=== PATIENT | male | born 1960 | race Caucasian/White ===

== ENCOUNTER 2017-09-10 20:16 | Observation (INO) | payer MEDICAID ==
[~2017-09-10] VITALS: Ht 172.7 cm; Wt 123.0 kg
[~2017-09-10 20:16] MED LIST: ALBUAER3 INH; FAMO40TA PO; OMEP40CA2 PO; TAMS5CAP PO
[2017-09-10 20:52] VITALS: BP 128/87; PULSE 78; RESP 18; TEMP 97.3; O2SAT 95
[2017-09-10] MEDS ORDERED: XARE20TA PO (21:42)
[2017-09-10 21:45] VITALS: BP 130/79; PULSE 75; RESP 18; O2SAT 96
--- NOTE | 2017-09-10 23:03 | RADRPT ---
EXAM DATE: 09/10/2017 10:56 PM EDT AGE/SEX: 57 years / Male INDICATIONS: Right lower extremity swelling. CLINICAL DATA: This is the patient's initial encounter. Patient reports that signs and symptoms have been present for 1 week and indicates a pain score of 5/10. MEDICAL/SURGICAL HISTORY: Hypertension. Asthma. Chronic obstructive pulmonary disease. Total knee replacement, right. COMPARISON: [facility]LI, US KIDNEY, BILATERAL, 08/26/2017. . TECHNIQUE: Venous ultrasound of both lower extremities was performed from the inguinal ligament to t he proximal calf. Real-time, color Doppler and spectral tracing, compression and augmentation techni ques were used. FINDINGS: There is possible nonocclusive thrombus involving the right popliteal vein as well as the peroneal vein. The femoral vein and iliac veins are patent. CONCLUSION: 1. Equivocal nonocclusive thrombus confined to the popliteal and peroneal vein. Electronically signed by: Kiet Eugene MD 09/10/2017 11:02 PM EDT
[2017-09-11] MEDS ORDERED: HYDROCHLOROTHIAZIDE 12.5 MG CAP PO ONE (00:15)
[2017-09-11 01:00] VITALS: BP 124/71; PULSE 78; RESP 16; O2SAT 97
--- NOTE | 2017-09-11 01:10 | RADRPT ---
EXAM DATE: 09/11/2017 12:32 AM EDT AGE/SEX: 57 years / Male INDICATIONS: Swelling and pain. CLINICAL DATA: This is the patient's initial encounter. Patient reports that signs and symptoms have been present for 1 week and indicates a pain score of 10/10. MEDICAL/SURGICAL HISTORY: . Hypertension. Asthma. Chronic obstructive pulmonary disease. . T otal knee replacement, right. COMPARISON: No prior exams available for comparison. FINDINGS: Multiple views of the right knee were obtained and demonstrate the patient is status post total knee arthroplasty. The arthroplasty components are cemented. The femoral component is intact and is unrema rkable in appearance. The tibial component demonstrates adjacent abnormal lucency along the medial an d lateral margins. There is high density cement noted along portions of the posterior joint. CONCLUSION: Abnormal lucency along the tibial component which could indicate loosening. Electronically signed by: Viral Chacko MD 09/11/2017 1:09 AM EDT
[2017-09-11 01:39] LABS: AUTOMATED NEUTROPHIL # 6.4 TH/MM3 (1.8-7.7); BASOPHIL # 0.2 TH/MM3 (0-0.2); EOSINOPHIL # 0.2 TH/MM3 (0-0.4); EOSINOPHIL % 1.7 % (0.0-4.0); HEMATOCRIT 49.2 % (39.0-51.0); HEMOGLOBIN 16.6 GM/DL (13.0-17.0); LYMPHOCYTE # 1.4 TH/MM3 (1.0-4.8); MEAN CORPUSCULAR HEMOGLOBIN 28.3 PG (27.0-34.0); MEAN CORPUSCULAR HGB CONC 33.6 % (32.0-36.0); MEAN PLATELET VOLUME 11.2 FL (7.0-11.0); MONO % 8.7 % (0.0-8.0); MONOCYTE # 0.8 TH/MM3 (0-0.9); NEUT % 71.6 % (16.0-70.0); PLATELET COUNT 149 TH/MM3 (150-450); RED BLOOD COUNT 5.86 MIL/MM3 (4.50-5.90); RED CELL DISTRIBUTION WIDTH 14.6 % (11.6-17.2)
[2017-09-11 02:12] LABS: ALKALINE PHOSPHATASE 147 U/L (45-117); TOTAL BILIRUBIN ADULT 0.8 MG/DL (0.2-1.0); TOTAL PROTEIN 7.4 GM/DL (6.4-8.2)
--- NOTE | 2017-09-11 02:14 | PD ---
HPI . RIGHT LEG SWELLING Chief Complaint: Edema Time Seen by Provider: 21:37 Travel History International Travel<30 days: No Contact w/Intl Traveler<30days: No Traveled to known affect area: No History of Present Illness HPI Patient is a 57-year-old male who is having tenderness and pain in his leg right sided 2 years ago he had a knee replacement in the last few weeks he has had swelling tenderness pain and inability to weight-bear of his right leg pain is pressure-like fullness heaviness constant worsening is not relieved by over- the-counter NSAIDs or Tylenol denies trauma . He is worried pain has something to do with his knee replacement.possible hardware malfunction. Patient is morbidly obese but denies other PFSH Past Medical History Asthma: Yes Cardiovascular Problems: Yes COPD: Yes Diminished Hearing: Yes Hypertension: Yes Integumentary: Yes Tetanus Vaccination: > 5 Years Influenza Vaccination: No Past Surgical History Other Surgery: Yes (" RIGHT TEMPORARY KNEE REPLACEMENT' ) Social History Alcohol Use: No Tobacco Use: Yes Substance Use: No Allergies-Medications (Allergen,Severity, Reaction): Coded Allergies: morphine (Verified Allergy, Severe, 09/10/17) penicillin G (Unverified Allergy, Intermediate, Rash, 09/10/17) tetanus toxoid, adsorbed (Unverified Allergy, Intermediate, RASH, 09/10/17) Reported Meds & Prescriptions Reported Meds & Active Scripts Active Klor-Con 10 (Potassium Chloride) 10 Meq Tab 10 Meq PO DAILY Furosemide 20 Mg Tab 20 Mg PO DAILY Flomax (Tamsulosin HCl) 0.4 Mg Cap 0.4 Mg PO HS Reported Xarelto (Rivaroxaban) 20 Mg Tab 20 Mg PO DAILY Proair Hfa 8.5 GM Inh (Albuterol Sulfate) 90 Mcg/Act Aer 2 Puff INH Q4-6H PRN 108 mcg/actuation Omeprazole 40 Mg Cap 40 Mg PO DAILY Review of Systems Except as stated in HPI: all other systems reviewed are Neg Physical Exam Narrative GENERAL: Morbidly obese with a right leg that is obviously more swollen than the left but not red not warm SKIN: Warm and dry. HEAD: Atraumatic. Normocephalic. EYES: Pupils equal and round. No scleral icterus. No injection or drainage. ENT: No nasal bleeding or discharge. Mucous membranes pink and moist. NECK: Trachea midline. No JVD. CARDIOVASCULAR: Regular rate and rhythm. RESPIRATORY: No accessory muscle use. Clear to auscultation. Breath sounds equal bilaterally. GASTROINTESTINAL: Abdomen soft, non-tender, nondistended. Hepatic and splenic margins not palpable. MUSCULOSKELETAL: Extremities right knee and calf significant more swollen than the left there is a healed incision of her knee replacement but there is no redness no cellulitic component pulses are palpated NEUROLOGICAL: Awake and alert. No obvious cranial nerve deficits. Motor grossly within normal limits. Five out of 5 muscle strength in the arms and legs. Normal speech. PSYCHIATRIC: Appropriate mood and affect; insight and judgment normal. Data Data Last Documented VS Orders Orders Us Leg Venous Doppler (09/10/17 ) Hydrochlorothiazide (Microzide) (09/11/17 00:15) Knee, Complete (4vws) (09/11/17 ) Complete Blood Count With Diff (09/11/17 01:01) Comprehensive Metabolic Panel (09/11/17 01:01) Consult Orthopedic (09/11/17 ) Admit Order (Ed Use Only) (09/11/17 02:33) Labs Laboratory Tests Test 09/11/17 01:19 White Blood Count 9.0 TH/MM3 Red Blood Count 5.86 MIL/MM3 Hemoglobin 16.6 GM/DL Hematocrit 49.2 % Mean Corpuscular Volume 84.0 FL Mean Corpuscular Hemoglobin 28.3 PG Mean Corpuscular Hemoglobin Concent 33.6 % Red Cell Distribution Width 14.6 % Platelet Count 149 TH/MM3 Mean Platelet Volume 11.2 FL Neutrophils (%) (Auto) 71.6 % Lymphocytes (%) (Auto) 16.0 % Monocytes (%) (Auto) 8.7 % Eosinophils (%) (Auto) 1.7 % Basophils (%) (Auto) 2.0 % Neutrophils # (Auto) 6.4 TH/MM3 Lymphocytes # (Auto) 1.4 TH/MM3 Monocytes # (Auto) 0.8 TH/MM3 Eosinophils # (Auto) 0.2 TH/MM3 Basophils # (Auto) 0.2 TH/MM3 CBC Comment DIFF FINAL Differential Comment Blood Urea Nitrogen 17 MG/DL Creatinine 1.04 MG/DL Random Glucose 75 MG/DL Total Protein 7.4 GM/DL Albumin 4.0 GM/DL Calcium Level 9.2 MG/DL Alkaline Phosphatase 147 U/L Aspartate Amino Transf (AST/SGOT) 14 U/L Alanine Aminotransferase (ALT/SGPT) 16 U/L Total Bilirubin 0.8 MG/DL Sodium Level 140 MEQ/L Potassium Level 3.9 MEQ/L Chloride Level 105 MEQ/L Carbon Dioxide Level 23.5 MEQ/L Anion Gap 12 MEQ/L Estimat Glomerular Filtration Rate 73 ML/MIN MDM Medical Decision Making Medical Screen Exam Complete: Yes Emergency Medical Condition: Yes Medical Record Reviewed: Yes Differential Diagnosis Cellulitis versus thrombosis versus versus septic joint versus malfunction or fracture of the prosthetic knee versus DVT Narrative Course DVT study is negative there is a partial thrombus in the popliteal but there is nonocclusive patient also has a x-ray that shows the part of the knee seems to possibly be unstable as there is an effusion lucency along the asked tract of the knee patient is admitted for inability to weight-bear leg swelling and possible issue with his prosthetic knee Diagnosis Primary Impression: Knee pain Qualified Codes: M25.561 - Pain in right knee; G89.29 - Other chronic pain Additional Impression: Intractable pain Admitting Information Admitting Physician Requests: Observation Scripts Potassium Chloride ER (Klor-Con 10) 10 Meq Tab 10 MEQ PO DAILY for Electrolyte Replacement, #3014 TAB 0 Refills Prov: Nikki Jimenez MD 09/11/17 Furosemide (Furosemide) 20 Mg Tab 20 MG PO DAILY for swelling, #3014 TAB 0 Refills Prov: Nikki Jimenez MD 09/11/17 Yonathan Elliott MD Sep 11, 2017 02:13
[2017-09-11 02:25] LABS: ALT (GPT) 16 U/L (12-78); AST (GOT) 14 U/L (15-37); BICARBONATE 23.5 MEQ/L (21.0-32.0); BLOOD UREA NITROGEN 17 MG/DL (7-18); CALCIUM 9.2 MG/DL (8.5-10.1); CHLORIDE 105 MEQ/L (98-107); CREATININE 1.04 MG/DL (0.60-1.30); GLOMERULAR FILTRATION RATE 73 ML/MIN (>89); GLUCOSE,RANDOM 75 MG/DL (74-106); SODIUM (NA) 140 MEQ/L (136-145)
[2017-09-11] MEDS ORDERED: ACETAMINOPHEN/HYDROcodone 325 MG/5 MG TAB PO PRN (02:45)
[2017-09-11] MEDS ORDERED: METOCLOPRAMIDE HCL 10 MG/2 ML VIAL IV PUSH PRN (02:45)
[2017-09-11] MEDS ORDERED: BISACODYL 10 MG SUPP RECTAL PRN (02:45)
[2017-09-11] MEDS ORDERED: SODIUM CHLORIDE 0.9% FLUSH 10 ML FLUSH IV FLUSH PRN (02:45)
[2017-09-11] MEDS ORDERED: ACETAMINOPHEN 325 MG TAB PO PRN (02:45)
[2017-09-11] MEDS ORDERED: LACTULOSE SYRUP 20 GM/30 ML CUP PO PRN (02:45)
[2017-09-11] MEDS ORDERED: MAGNESIUM HYDROXIDE SUSP 30 ML CUP PO PRN (02:45)
[2017-09-11] MEDS ORDERED: SENNOSIDES 8.6 MG TAB PO PRN (02:45)
[2017-09-11] MEDS ORDERED: HYDROmorphone HCL PF 2 MG/ML VIAL IV PUSH PRN (02:45)
--- NOTE | 2017-09-11 03:41 | HHI.HP ---
[facility] No Primary Care Physician Admission Diagnosis KNEE SWELLING PAIN CALF SWELLING INABILITY TO WEIGHT Diagnoses: (1) Intractable pain Diagnosis: Principal (2) DVT (deep venous thrombosis) Diagnosis: Principal (3) Knee pain Diagnosis: Principal Travel History International Travel<30 Days: No Contact w/Intl Traveler <30 Da: No Traveled to Known Affected Are: No History of Present Illness This is a 57-year-old male with PMH of HTN, COPD and DVT on Xarelto who presented to the ER with complaints of right leg pain x6 months. States he was seen at [facility] 6 months ago and diagnosed w/ DVT for which he is on Xarelto, compliant w/ meds. Has had ongoing right leg/foot pain since then, today pain so severe he is unable to ambulate. Pain is severe, 10/10, non-radiating, worse w/ movement/weight baring. No injury/trauma. On arrival, BP 128/87, HR 78, O2 sat 95% on RA, Afebrile. CBC at baseline. Chemistry unremarkable. Knee X-ray with abnormal lucency along tibial component possibly indicating loosening. LE DVT equivocal nonocclusive thrombus in popliteal and peroneal veins. Review of Systems Except as stated in HPI: all other systems reviewed are Neg ROS: 14 point review of systems otherwise negative. Past Family Social History Past Medical History PMH: HTN, COPD and DVT on Xarelto Past Surgical History PAST SURGICAL HISTORY: Right Knee Replacement Allergies: Coded Allergies: morphine (Verified Allergy, Severe, 09/10/17) penicillin G (Unverified Allergy, Intermediate, Rash, 09/10/17) tetanus toxoid, adsorbed (Unverified Allergy, Intermediate, RASH, 09/10/17) Family History PAST FAMILY HISTORY: Reviewed. No h/o DM or CAD Social History PAST SOCIAL HISTORY: Negative for alcohol or drugs. Positive for tobacco Physical Exam Vital Signs Vital Signs Date Time Temp Pulse Resp B/P (MAP) Pulse Ox O2 Delivery O2 Flow Rate FiO2 09/10/17 21:45 75 18 130/79 (96) 96 Room Air 09/10/17 20:52 97.3 78 18 128/87 (101) 95 Physical Exam PE: GENERAL: Middle-aged white male in no acute distress. Speech impediment. HEENT: PERRLA, EOMI. No scleral icterus or conjunctival pallor. No lid lag or facial droop. CARDIOVASCULAR: Regular rate and rhythm. No obvious murmurs to auscultation. No chest tenderness to palpation. RESPIRATORY: No obvious rhonchi or wheezing. Clear to auscultation. Breath sounds equal bilaterally. GASTROINTESTINAL: Abdomen soft, non-tender, nondistended. BS normal. MUSCULOSKELETAL: Extremities without clubbing, cyanosis. Bilateral LE edema, right worse than left, tenderness to palpation RLE. NEUROLOGICAL: Awake, alert and oriented x4. No focal neurologic deficits. Moving both upper and lower extremities spontaneously. Laboratory Laboratory Tests Test 09/11/17 01:19 White Blood Count 9.0 Red Blood Count 5.86 Hemoglobin 16.6 Hematocrit 49.2 Mean Corpuscular Volume 84.0 Mean Corpuscular Hemoglobin 28.3 Mean Corpuscular Hemoglobin Concent 33.6 Red Cell Distribution Width 14.6 Platelet Count 149 Mean Platelet Volume 11.2 Neutrophils (%) (Auto) 71.6 Lymphocytes (%) (Auto) 16.0 Monocytes (%) (Auto) 8.7 Eosinophils (%) (Auto) 1.7 Basophils (%) (Auto) 2.0 Neutrophils # (Auto) 6.4 Lymphocytes # (Auto) 1.4 Monocytes # (Auto) 0.8 Eosinophils # (Auto) 0.2 Basophils # (Auto) 0.2 CBC Comment DIFF FINAL Differential Comment Blood Urea Nitrogen 17 Creatinine 1.04 Random Glucose 75 Total Protein 7.4 Albumin 4.0 Calcium Level 9.2 Alkaline Phosphatase 147 Aspartate Amino Transf (AST/SGOT) 14 Alanine Aminotransferase (ALT/SGPT) 16 Total Bilirubin 0.8 Sodium Level 140 Potassium Level 3.9 Chloride Level 105 Carbon Dioxide Level 23.5 Anion Gap 12 Estimat Glomerular Filtration Rate 73 Result Diagram: 09/11/1711809/11/17118 Caprini VTE Risk Assessment Caprini VTE Risk Assessment: Mod/High Risk (score >= 2) Caprini Risk Assessment Model Point Value = 1 Point Value = 2 Point Value = 3 Point Value = 5 Age 41-60 Minor surgery BMI > 25 kg/m2 Swollen legs Varicose veins or History of unexplained or recurrent spontaneous Oral contraceptives or hormone replacement Sepsis (< 1 month) Serious lung disease, including pneumonia (< 1 month) Abnormal pulmonary function Acute myocardial infarction Congestive heart failure (< 1 month) History of inflammatory bowel disease Medical patient at bed rest Age 61-74 Arthroscopic surgery Major open surgery (> 45 min) Laparoscopic surgery (> 45 min) Malignancy Confined to bed (> 72 hours) Immobilizing plaster cast Central venous access Age >= 75 History of VTE Family history of VTE Factor V Leiden Prothrombin [id number] Lupus anticoagulant Anticardiolipin antibodies Elevated serum homocysteine Heparin-induced thrombocytopenia Other congenital or acquired thrombophilia Stroke (< 1 month) Elective arthroplasty Hip, pelvis, or leg fracture Acute spinal cord injury (< 1 month) Prophylaxis Regimen Total Risk Factor Score Risk Level Prophylaxis Regimen 0-1 Low Early ambulation 2 Moderate Order ONE of the following: *Sequential Compression Device (SCD) *Heparin 5000 units SQ BID 3-4 Higher Order ONE of the following medications: *Heparin 5000 units SQ TID *Enoxaparin/Lovenox 40 mg SQ daily (WT < 150 kg, CrCl > 30 mL/min) *Enoxaparin/Lovenox 30 mg SQ daily (WT < 150 kg, CrCl > 10-29 mL/min) *Enoxaparin/Lovenox 30 mg SQ BID (WT < 150 kg, CrCl > 30 mL/min) AND/OR *Sequential Compression Device (SCD) 5 or more Highest Order ONE of the following medications: *Heparin 5000 units SQ TID (Preferred with Epidurals) *Enoxaparin/Lovenox 40 mg SQ daily (WT < 150 kg, CrCl > 30 mL/min) *Enoxaparin/Lovenox 30 mg SQ daily (WT < 150 kg, CrCl > 10-29 mL/min) *Enoxaparin/Lovenox 30 mg SQ BID (WT < 150 kg, CrCl > 30 mL/min) AND *Sequential Compression Device (SCD) Assessment and Plan Problem List: (1) Intractable pain ICD Code: R52 - Pain, unspecified (2) Knee pain ICD Code: M25.569 - Pain in unspecified knee (3) DVT (deep venous thrombosis) ICD Code: I82.409 - Acute embolism and thrombosis of unspecified deep veins of unspecified lower extremity Assessment and Plan A/P: 1. Intractable Pain: w/ associated gait instability due to pain complaints. Analgesics/antiemetics as needed. PT for eval/tx. 2. Knee Pain: h/o previous replacement 1.5yrs ago, denies recent injury/ trauma. X-ray w/ abnormal lucency along tibial component, possible loosening. Ortho consulted by ER physician, will follow up for recommendations. 3. DVT: H/o DVT on Xarelto, Doppler w/ nonocclusive thrombus, will continue w / Xarelto. 4. Social work for d/c planning as needed, may need assistance w/ placement depending on PT eval. 5. Case discussed w/ ER physician at length, labs/records/imaging reviewed by me. Sofya Drummond MD Sep 11, 2017 03:41
[2017-09-11 05:00] VITALS: BP 125/80; PULSE 67; RESP 18; O2SAT 95
[2017-09-11 08:29] VITALS: BP 117/72; PULSE 65; RESP 16; TEMP 97.7; O2SAT 95
[2017-09-11] MEDS ORDERED: PANTOPRAZOLE SOD 40 MG DELAYED RELEASE TAB PO SCH (09:00)
[2017-09-11] MEDS ORDERED: RIVAROXABAN 20 MG TAB PO SCH (09:00)
[2017-09-11] MEDS ORDERED: SODIUM CHLORIDE 0.9% FLUSH 10 ML FLUSH IV FLUSH SCH (09:00)
[2017-09-11] MEDS ORDERED: DOCUSATE SODIUM 50 MG/SENNA 8.6 MG TAB PO SCH (09:00)
--- NOTE | 2017-09-11 09:16 | MB ---
cc: Elliot Woods MD DATE: 09/11/2017 REASON FOR CONSULTATION: Right knee possible loosening of prosthesis. HISTORY OF PRESENT ILLNESS: The patient is a 57-year-old man who had a significant history of hypertension, COPD, and DVT for which he is on Xarelto, diagnosed at [facility] about 6 months ago. He tells me he is actually presenting to this emergency room more with leg pain rather than new issues about the right knee. The patient had a knee replacement done several years ago. He says that this was "put in wrong. He tells me that he did have history of some infection about the knee because he ended up having to have the knee taken out by Dr. Brenner, at the [facility] and there is a "temporary" knee replacement currently in place. He has been following up with Dr. Brenner at the [facility] consistently and says he has a followup visit in about a month or so. He says that there was a plan on doing another surgery on the knee. The patient denies any new injuries about the knee and denies any new drainage. He says that he does smoke. PAST MEDICAL HISTORY: As above. PAST SURGICAL HISTORY: Positive for knee replacement and a revision knee replacement. ALLERGIES: INCLUDE PENICILLIN. FAMILY HISTORY: Noncontributory. SOCIAL HISTORY: The patient smokes cigarettes and when asked how much he smokes, he says "too much." PHYSICAL EXAMINATION: VITAL SIGNS: Temperature 97.3, pulse is 67, respirations 18, blood pressure 125/80. GENERAL: The patient is awake, alert and oriented x 3. He has disheveled. He has a significant malodor of smoke about him. He is in no acute distress due to the knee. He does have some stuttering from a speech impediment. HEENT: His head is atraumatic. Oropharynx is moist. Extraocular muscles are intact. NECK: Supple. ABDOMEN: Obese, nontender. LUNGS: No audible wheeze. Normal inspiratory effort. BACK: Shows no CVA tenderness. EXTREMITIES: Right knee has diffuse swelling of a moderate degree. Chronic thickening of the skin around the foot. He does not have any specific focal tenderness around the calf. His right knee replacement incision, which is an anterior incision, is well healed with no skin breakdown. No redness. I do not appreciate a significant effusion. He can actively extend the knee. There is normal alignment about the knee. I cannot palpate a pulse distally, but this is more likely due to swelling. There has brisk capillary refill with no signs of acute ischemia. IMAGING STUDIES: Labs shows a white cell count of 9.0, hematocrit 49.2. Creatinine is 1.04. IMAGING STUDIES: X-rays: The impression is abnormal lucency along the tibial component, which could indicate loosening. The images are reviewed, which show the patient has revision components of a knee replacement. There is a metallic femoral component, which is cemented. There is an polyethylene tibial component, which is also cemented. There are some radiolucent lines noted on several of the views, which could indicate some loosening in that area, but no gross failure is noted. It is a fairly low tibial cut. There was a metal stem, likely within the polyethylene component. There is diffuse cement noted around the knee. Ultrasound: Equivocal nonocclusive thrombus confined to popliteal and peroneal veins. IMPRESSION: 1. Right knee, status post revision knee replacement, possibly for infection. 2. Right knee, possible loosening of all polyethylene tibial component with no gross failure. 3. Multiple medical problems including chronic obstructive pulmonary disease and active smoking. MEDICAL DECISION MAKING: At this point, I do not see overt signs of active infection of the right knee. Wound looks good. He is afebrile and labs show no signs of infection. He has no effusion. He does have x-rays showing possible loosening of the polyethylene component, but this is more of a chronic problem rather than an acute problem. He is being actively followed by an orthopedic surgeon at the [facility] with a visit coming up next month with him. I do not recommend any orthopedic intervention for the knee at this time and I do recommend for the patient to followup with the operating physician at [facility] for definitive plans. I spent time discussing smoking cessation and the importance of smoking cessation, especially if he is considering surgical management with that physician. MD NATALIE Echols/ROSANNA , 08:32 AM , 09:14 AM
[2017-09-11] MEDS ORDERED: KLOR10TA PO (14:08)
[2017-09-11] MEDS ORDERED: FURO20TA PO (14:08)
--- NOTE | 2017-09-11 14:09 | HHI.DCPOC ---
Discharge Care Plan Diagnosis: (1) Knee pain Goals to Promote Your Health * To prevent worsening of your condition and complications * To maintain your health at the optimal level Directions to Meet Your Goals Take your medications as prescribed Follow your dietary instruction Follow activity as directed Keep your appointments as scheduled Take your immunizations and boosters as scheduled If your symptoms worsen call your PCP, if no PCP go to Urgent Care Center or Emergency Room Smoking is Dangerous to Your Health. Avoid second hand smoke Call the 24-hour hour crisis hotline for domestic abuse at Nikki Jimenez MD Sep 11, 2017 14:09
--- NOTE | 2017-09-11 14:34 | HHI.PR ---
Subjective Remarks Pt seen and examined. Admitted overnight for R knee pain. Orthopedic surgery was consulted given finding of an abnormal lucency in his XR which could indicate loosening of his knee replacement hardware. There is no indication for surgical intervention at this time and he was advised to f/u with his orthopedic surgeon at . The patient feels ready to go home. Pain is improved. He requests something to help with the swelling in his ankles, with his right ankle being more swollen. He has an appt with his PCP on 09/21. He denies CP, SOB , abdominal pain, N/V. Objective Vital Signs Date Time Temp Pulse Resp B/P (MAP) Pulse Ox O2 Delivery O2 Flow Rate FiO2 09/11/17 08:29 97.7 65 16 117/72 (87) 95 Room Air 09/11/17 05:00 67 18 125/80 (95) 95 Room Air 09/11/17 01:00 78 16 124/71 (88) 97 Room Air 09/10/17 21:45 75 18 130/79 (96) 96 Room Air 09/10/17 20:52 97.3 78 18 128/87 (101) 95 Result Diagram: 09/11/17 0119 09/11/17 0119 Imaging Knee X-Ray 09/11/17 0000 Signed Impressions: CONCLUSION: Abnormal lucency along the tibial component which could indicate loosening. Lower Extremity Ultrasound 09/10/17 0000 Signed Impressions: CONCLUSION: 1. Equivocal nonocclusive thrombus confined to the popliteal and peroneal vein . Objective Remarks GENERAL: Obese male sitting up in bed in [facility]. SKIN: Warm and dry. HEENT: AT/NC. Pupils equal and round. MMM. HEART: RRR no m/r/g. LUNGS: CTAB without wheezes or crackles. ABDOMEN: +BS, soft, NT, ND. EXTREMITIES: 1+ R ankle edema, trace on left. Venous stasis changes bilaterally. R knee incision scar without signs of infection. NEURO: Awake and alert. PSYCH: Appropriate mood and affect. A/P Problem List: (1) Knee pain ICD Code: M25.569 - Pain in unspecified knee (2) DVT (deep venous thrombosis) ICD Code: I82.409 - Acute embolism and thrombosis of unspecified deep veins of unspecified lower extremity Assessment and Plan 57 year old male with history of RLE DVT and history of R TKR admitted overnight for intractable R knee pain. 1. R knee pain - XR demonstrating an abnormal lucency along the tibial component which could indicate loosening - Ortho consulted, no surgical intervention at this time. Recommend follow up with ortho at - OT pain control - Elevate leg 2. RLE DVT - Continue Xarelto - Elevate leg - Recommend weight loss and exercise 3. BPH - Continue Flomax Discharge Planning D/C home and recommend outpatient follow-up with orthopedic surgeon at Problem Qualifiers (1) Knee pain: Qualified Codes: M25.561 - Pain in right knee; G89.29 - Other chronic pain (2) DVT (deep venous thrombosis): Qualified Codes: I82.431 - Acute embolism and thrombosis of right popliteal vein Nikki Jimenez MD Sep 11, 2017 14:34
[2017-09-11] MEDS ORDERED: TAMSULOSIN HCL 0.4 MG CAP PO SCH (21:00)
== END 2017-09-11 15:09 | disposition home or self-care (01) ==
LOC: NEPC 20:16 → NEDA 09-11 02:35 → NEDH 09-11 07:16
PROVIDERS: ADMIT Hospitalist; ATTEND Hospitalist
DX: M25.561 Pain in right knee (principal); I82.509 Chronic embolism and thrombosis of unspecified deep veins of unspecified lower extremity; M79.89 Other specified soft tissue disorders; R60.9 Edema, unspecified; J44.9 Chronic obstructive pulmonary disease, unspecified; I10 Essential (primary) hypertension; Z79.01 Long term (current) use of anticoagulants; Z96.651 Presence of right artificial knee joint; R26.9 Unspecified abnormalities of gait and mobility
CPT/HCPCS: 73564; 80053; 85025; 93971; 99285; G0378